=== PATIENT | male | born 1960 | race Caucasian/White ===

== ENCOUNTER 2017-08-18 04:27 | Emergency (ER) | payer BC, OTHER ==
[2017-08-18] MEDS ORDERED: NA CHLORIDE 0.9% 1,000 ML ONE (04:54)
[2017-08-18] MEDS ORDERED: METHYLPREDNISOLONE 125 MG INJ ONE (04:54)
[2017-08-18] MEDS ORDERED: DIPHENHYDRAMINE 50 MG/ML VIAL ONE (04:54)
[2017-08-18] MEDS ORDERED: FAMOTIDINE 20 MG/2 ML VIAL IV ONE (04:55)
--- NOTE | 2017-08-18 06:32 | EDPHYS ---
Physician Documentation [facility] Name: Edward Quiles Age: 56 yrs Sex: Male : 1960 Arrival Date: 08/18/2017 Time: 04:33 Bed 6 Private MD: Dat Rodrigues F ED Physician Hugo Queen HPI: 08/18 05:50 This 56 yrs old Male presents to ER via Ambulatory with complaints of rn Allergic Reaction. 05:50 The patient presents with itching, rash. The patient presents with swelling of the rn lips. Onset: The symptoms/episode began/occurred just prior to arrival. Associated signs and symptoms: Pertinent positives: hives. Possible causes: At home the patient or guardian has treated the symptoms with nothing. Severity of symptoms: At their worst the symptoms were mild in the emergency department the symptoms are unchanged. The patient has experienced a previous episode. Pt reports thinks something was in shirt, broke out instantly in rash/hives, + mild swelling to lips, came in for eval, states used to have similar reactions to specific insect when child, no sob or trouble breathing, no abd pain. . Historical: - Allergies: 04:45 No Known Allergies; aa1 - PMHx: 04:45 High Cholesterol; Hypertension; aa1 - PSHx: 04:45 Hernia repair; aa1 - Immunization history:: Flu vaccine is not up to date. - Social history:: Smoking status: Patient/guardian denies using tobacco. - Family history:: not pertinent. - Hospitalizations: : No recent hospitalization is reported. ROS: 05:50 Constitutional: Negative for fever, chills, and weight loss, Eyes: Negative for injury, rn pain, redness, and discharge, Cardiovascular: Negative for chest pain, palpitations, and edema, Respiratory: Negative for shortness of breath, cough, wheezing, and pleuritic chest pain, Abdomen/GI: Negative for abdominal pain, nausea, vomiting, diarrhea, and constipation, MS/Extremity: Negative for injury and deformity, Skin: + rash and itching Neuro: Negative for headache, weakness, numbness, tingling, and seizure. Exam: 05:50 Constitutional: This is a well developed, well nourished patient who is awake, alert, rn and in no acute distress. Head/Face: Normocephalic, atraumatic. Eyes: Pupils equal round and reactive to light, extra-ocular motions intact. Lids and lashes normal. Conjunctiva and sclera are non-icteric and not injected. Cornea within normal limits. Periorbital areas with no swelling, redness, or edema. ENT: No intraoral swelling or lesions, no stridor, + mild edema of both lips Neck: Trachea midline, no thyromegaly or masses palpated, and no cervical lymphadenopathy. Supple, full range of motion without nuchal rigidity, or vertebral point tenderness. No Meningismus. Cardiovascular: Regular rate and rhythm with a normal S1 and S2. No gallops, murmurs, or rubs. Normal PMI, no JVD. No pulse deficits. Respiratory: Lungs have equal breath sounds bilaterally, clear to auscultation and percussion. No rales, rhonchi or wheezes noted. No increased work of breathing, no retractions or nasal flaring. Abdomen/GI: Soft, non-tender, with normal bowel sounds. No distension or tympany. No guarding or rebound. No evidence of tenderness throughout. Skin: + diffuse urticaria with excoriations MS/ Extremity: Pulses equal, no cyanosis. Neurovascular intact. Full, normal range of motion. Equal circumference. Neuro: Awake and alert, GCS 15, oriented to person, place, time, and situation. Cranial nerves II-XII grossly intact. Motor strength 5/5 in all extremities. Sensory grossly intact. Cerebellar exam normal. Normal gait. Vital Signs: 04:45 BP 155 / 85; Pulse 51; Resp 18; Temp 98.0; Pulse Ox 95% on R/A; Weight 122.47 kg; aa1 Height 6 ft. 3 in. (190.50 cm); Pain 0/10; 06:04 BP 115 / 76; Pulse 40; Resp 14; Pulse Ox 94% ; bp 04:45 Body Mass Index 33.75 (122.47 kg, 190.50 cm) aa1 MDM: 04:43 Patient medically screened. rn 06:30 Differential diagnosis: urticaria. Data reviewed: vital signs, nurses notes, and as a rn result, I will discharge patient. Counseling: I had a detailed discussion with the patient and/or guardian regarding: the historical points, exam findings, and any diagnostic results supporting the discharge/admit diagnosis, the need for outpatient follow up, to return to the emergency department if symptoms worsen or persist or if there are any questions or concerns that arise at home. Response to treatment: the patient's symptoms have markedly improved after treatment, and as a result, I will discharge patient. Special discussion: I discussed with the patient/guardian in detail that at this point there is no indication for admission to the hospital. It is understood, however, that if the symptoms persist or worsen the patient needs to return immediately for re-evaluation. ED course: Pt doing much better, rash has resolved, swelling still present but improved, states ready to go home. . 08/18 04:51 Order name: IV Start; Complete Time: 04:59 rn Administered Medications: 05:00 Drug: SOLU-Medrol 125 mg Route: IVP; Site: right hand; bp 06:04 Follow up: Response: Marked relief of symptoms bp 05:00 Drug: Benadryl 50 mg Route: IVP; Site: right hand; bp 06:04 Follow up: Response: Marked relief of symptoms bp 05:00 Drug: NS 0.9% 1000 ml Route: IV; Rate: 1000 ml; Site: right hand; bp 05:00 Drug: Pepcid 20 mg Route: IVP; Site: right hand; bp 06:04 Follow up: Response: Marked relief of symptoms bp Disposition: 08/18/17 06:31 Discharged to Home. Impression: Acute Allergic Reaction, Urticaria, unspecified. - Condition is Stable. - Discharge Instructions: Hives. - Prescriptions for Prednisone 20 mg Oral Tablet - take 3 tablet by ORAL route once daily for 5 days; 15 tablet. EpiPen 0.3 mg Injection auto- injector - inject 1 pen by INTRAMUSCULAR route one time As needed Inject into the outer portion of the thigh, through clothing if necessary. Indicated in the emergency treatment of allergic reactions; 2 packet. - Medication Reconciliation Form, Thank You Letter, Antibiotic Education, Prescription Opioid Use form. - Follow up: Private Physician; When: As needed; Reason: Recheck today's complaints, Re-evaluation by your physician. - Problem is new. - Symptoms have improved. Signatures: Domonique Cole RN RN aa1 Hugo Queen MD MD rn Peltier, Brian, RN RN bp Corrections: (The following items were deleted from the chart) 06:48 06:31 08/18/2017 06:31 Discharged to Home. Impression: Acute Allergic Reaction; bp Urticaria, unspecified. Condition is Stable. Forms are Medication Reconciliation Form, Thank You Letter, Antibiotic Education, Prescription Opioid Use. Follow up: Private Physician; When: As needed; Reason: Recheck today's complaints, Re-evaluation by your physician. Problem is new. Symptoms have improved. rn
--- NOTE | 2017-08-18 06:32 | ER ---
Nurse's Notes [facility] Name: Edward Quiles Age: 56 yrs Sex: Male : 1960 Arrival Date: 08/18/2017 Time: 04:33 Bed 6 Private MD: Dat Rodrigues F Diagnosis: Acute Allergic Reaction;Urticaria, unspecified Presentation: 08/18 04:42 Presenting complaint: Patient states: he was getting ready for work and when he put his aa1 shirt on he instantly began to itch. Reports lint-like substance inside of his shirt upon removing it. Hives and redness noted to trunk, arms, neck and face. Denies SOB. Transition of care: patient was not received from another setting of care. Onset: The symptoms/episode began/occurred suddenly, just prior to arrival. Anaphylaxis evaluation, no signs or symptoms of anaphylaxis were noted. Onset of symptoms was August 18, 2017. Initial Sepsis Screen: Does the patient meet any 2 criteria? No. Patient's initial sepsis screen is negative. Does the patient have a suspected source of infection? No. Patient's initial sepsis screen is negative. Care prior to arrival: None. 04:42 Method Of Arrival: Ambulatory aa1 04:42 Acuity: SVITLANA 3 aa1 Triage Assessment: 04:45 General: Appears in no apparent distress. comfortable, Behavior is calm, cooperative, aa1 appropriate for age. Pain: Denies pain. Historical: - Allergies: 04:45 No Known Allergies; aa1 - PMHx: 04:45 High Cholesterol; Hypertension; aa1 - PSHx: 04:45 Hernia repair; aa1 - Immunization history:: Flu vaccine is not up to date. - Social history:: Smoking status: Patient/guardian denies using tobacco. - Family history:: not pertinent. - Hospitalizations: : No recent hospitalization is reported. Screenin:41 Abuse screen: Denies threats or abuse. Denies injuries from another. Nutritional bp screening: No deficits noted. Tuberculosis screening: No symptoms or risk factors identified. Fall Risk None identified. Assessment: 05:00 General: Appears in no apparent distress. comfortable, Behavior is calm, cooperative, bp appropriate for age. Pain: Denies pain. Neuro: Level of Consciousness is awake, alert, obeys commands, Oriented to person, place, time, situation, Appropriate for age. Cardiovascular: No deficits noted. Respiratory: Airway is patent Respiratory effort is even, unlabored, Respiratory pattern is regular, symmetrical, Breath sounds are clear. GI: No signs and/or symptoms were reported involving the gastrointestinal system. : No signs and/or symptoms were reported regarding the genitourinary system. EENT: No deficits noted. Derm: Rash noted that is red, urticaria. Musculoskeletal: Circulation, motion, and sensation intact. Range of motion:. 06:47 Reassessment: PT D/C HOME AMBULATORY, DX WITH ACUTE ALLERGIC RXN. bp Vital Signs: 04:45 BP 155 / 85; Pulse 51; Resp 18; Temp 98.0; Pulse Ox 95% on R/A; Weight 122.47 kg; aa1 Height 6 ft. 3 in. (190.50 cm); Pain 0/10; 06:04 BP 115 / 76; Pulse 40; Resp 14; Pulse Ox 94% ; bp 04:45 Body Mass Index 33.75 (122.47 kg, 190.50 cm) aa1 ED Course: 04:33 Patient arrived in ED. al2 04:33 Dat Rodrigues MD is Private Physician. al2 04:34 Matthew Hameed, CORI is Primary Nurse. bp 04:41 Patient has correct armband on for positive identification. Bed in low position. Call bp light in reach. Side rails up X2. 04:43 Hugo Queen MD is Attending Physician. rn 04:45 Triage completed. aa1 04:45 Arm band placed on right wrist. Patient placed in an exam room, on a stretcher. aa1 05:01 Inserted saline lock: 20 gauge in right hand, using aseptic technique. bp 06:48 No provider procedures requiring assistance completed. IV discontinued, intact, bp bleeding controlled, No redness/swelling at site. Pressure dressing applied. Administered Medications: 05:00 Drug: SOLU-Medrol 125 mg Route: IVP; Site: right hand; bp 06:04 Follow up: Response: Marked relief of symptoms bp 05:00 Drug: Benadryl 50 mg Route: IVP; Site: right hand; bp 06:04 Follow up: Response: Marked relief of symptoms bp 05:00 Drug: NS 0.9% 1000 ml Route: IV; Rate: 1000 ml; Site: right hand; bp 05:00 Drug: Pepcid 20 mg Route: IVP; Site: right hand; bp 06:04 Follow up: Response: Marked relief of symptoms bp Outcome: 06:31 Discharge ordered by . rn 06:48 Discharged to home ambulatory. bp 06:48 Condition: stable 06:48 Discharge instructions given to patient, Instructed on discharge instructions, follow up and referral plans. medication usage, Demonstrated understanding of instructions, follow-up care, medications, Prescriptions given X 2. 06:48 Patient left the ED. bp Signatures: Domonique Cole RN RN aa1 Hugo Queen MD MD rn Peltier, Brian, RN RN bp Ramirez, Trinity landa
[2017-08-18] MEDS ORDERED: predniSONE 20 MG TAB ONE (06:44)
== END 2017-08-18 06:48 | disposition home or self-care (01) ==
LOC: ER 04:27
DX: L50.9 Urticaria, unspecified (principal); T78.40XA Allergy, unspecified, initial encounter; X58.XXXA Exposure to other specified factors, initial encounter
CPT/HCPCS: 96374; 96375; 99283; J2930; J7030; J7512